=== PATIENT | female | born 1965 | race Caucasian/White ===

== ENCOUNTER 2016-12-27 11:30 | Inpatient (IN) | payer BC ==
[~2016-12-27] VITALS: Ht 170.2 cm; Wt 77.9 kg
[~2016-12-27 11:30] MED LIST: CEFAZOLIN 2 GM/50 ML (PMX) 50 ML IVPB ONE; LACTATED RINGER'S 1,000 ML IV* SCH; METF1000 PO; VENL75CA89 PO
[2017-04-24] MEDS ORDERED: CEFAZOLIN 2 GM/50 ML (PMX) 50 ML IVPB SCH (06:00)
[2017-04-24 14:52] VITALS: BMI 26.8
[2017-04-25] VITALS (40 sets, daily range): BP systolic 101–153; BP diastolic 54–87; PULSE 86–108; RESP 16–20; Ht 170.2 cm; Wt 77.9 kg
[2017-04-25] MEDS ORDERED: LACTATED RINGER'S 1,000 ML IV* SCH (06:00)
[2017-04-25] MEDS ORDERED: NABU-83 PO (06:19)
[2017-04-25] MEDS ORDERED: OXYC5CAP17 PO (06:19)
[2017-04-25] MEDS ORDERED: CARI350T29 PO (06:19)
[2017-04-25] MEDS ORDERED: INSULIN REGULAR, HUMAN 100 UNIT/1 ML 3ML VIAL IV ONE ×2 (06:30→11:30)
--- NOTE | 2017-04-25 06:54 | HPN ---
Date/Time of Note Date/Time of Note DATE: 04/25/17 TIME: 06:54 Interval H&P Admission Note Pt. seen H&P reviewed: No system changes MOISÉS GRAHAM PA-C Apr 25, 2017 06:54
[2017-04-25] MEDS ORDERED: ONDANSETRON 4 MG INJ IV PRN ×2 (07:00→11:00)
[2017-04-25] MEDS ORDERED: ACETAMINOPHEN 325 MG TAB PO PRN (07:00)
[2017-04-25] MEDS ORDERED: CEFAZOLIN 1 GM INJ ONE (07:00)
[2017-04-25] MEDS ORDERED: HYDROmorphONE 0.5 MG/0.5 ML SYG IV PRN (07:00)
[2017-04-25] MEDS ORDERED: ZOLPIDEM 5 MG TAB PO PRN (07:00)
[2017-04-25] MEDS ORDERED: NALOXONE (0.4 MG/ML) INJ IV PRN (07:00)
[2017-04-25] MEDS ORDERED: CEPASTAT LOZENGE MT PRN (07:00)
[2017-04-25] MEDS ORDERED: BISACODYL 10 MG SUPP PR PRN (07:00)
[2017-04-25] MEDS ORDERED: DIPHENHYDRAMINE 50 MG INJ IV PRN ×2 (07:00→11:00)
[2017-04-25] MEDS ORDERED: SURGIFOAM POWDER 1 GM KIT ONE ×2 (07:08→09:52)
[2017-04-25] MEDS ORDERED: BUPIVACAINE 0.25%/EPI (SDV) 30 ML INJ ONE ×2 (07:08→08:58)
[2017-04-25] MEDS ORDERED: THROMBIN 5000 UNIT VIAL ONE (07:08)
[2017-04-25] MEDS ORDERED: CA CHLORIDE 10% 10 ML SYRINGE ONE (07:09)
[2017-04-25] MEDS ORDERED: POLYMYXIN/BACITRACIN 1L IRRIG ONE (07:09)
[2017-04-25] MEDS ORDERED: FENTAnyl 50 MCG/ML VIAL ONE (07:09)
[2017-04-25] MEDS ORDERED: SUCCINYLCHOLINE CHLORIDE 100 MG/5 ML SYG IV ONE (07:10)
[2017-04-25] MEDS ORDERED: ROCURONIUM 50 MG INJ ONE (07:10)
[2017-04-25] MEDS ORDERED: LIDOCAINE 2% (SDV) 5 ML INJ ONE (07:10)
[2017-04-25] MEDS ORDERED: PROPOFOL 20 ML ONE (07:10)
[2017-04-25] MEDS ORDERED: HYDROmorphONE 2 MG/ML SYG ONE (07:11)
[2017-04-25] MEDS ORDERED: DEXAMETHASONE 4 MG/ML 1 ML INJ ONE (07:11)
[2017-04-25] MEDS ORDERED: HEPARIN 1000 UNITS/ML 10 ML INJ ONE (07:21)
[2017-04-25] MEDS ORDERED: MIDAZOLAM 1 MG/ML 2 ML INJ ONE (07:23)
[2017-04-25] MEDS ORDERED: SUGAMMADEX SODIUM 200 MG/2 ML VIAL IV ONE (07:36)
[2017-04-25] MEDS ORDERED: LABETALOL HCL 20MG INJ ONE (07:52)
[2017-04-25] MEDS ORDERED: PHENYLephrine 10 MG INJ ONE (07:58)
[2017-04-25] MEDS: DOCUSATE SODIUM 100 MG CAP PO SCH ×2 (09:00→20:23)
[2017-04-25] MEDS ORDERED: ONDANSETRON 4 MG INJ ONE (09:11)
--- NOTE | 2017-04-25 10:42 | SIPON ---
Date/Time of Note Date/Time of Note DATE: 04/25/17 TIME: 10:42 Operative Report Preoperative Diagnosis L4-5 degenerative disc disease and stenosis Postoperative Diagnosis L4-5 degenerative disc disease and stenosis Operation/Procedure Performed L4-5 fusion Surgeon see signature line district administrative assistant Marlen Narvaez Anesthesia: general Estimated blood loss: 10 - 50 ml's Transfusion Required none Specimen L4-5 disc Grafts/Implants Screws and cage Complications none NICOLE SCHAFER MD Apr 25, 2017 10:42
[2017-04-25] MEDS ORDERED: FENTAnyl 50 MCG/ML VIAL IV PRN ×3 (11:00)
[2017-04-25] MEDS ORDERED: KETOROLAC 30 MG INJ IV PRN (11:00)
[2017-04-25] MEDS ORDERED: METOCLOPRAMIDE 10 MG INJ IV PRN (11:00)
[2017-04-25] MEDS ORDERED: EPHEDrine SULFATE 50 MG/5 ML SYG IV PRN (11:00)
[2017-04-25] MEDS ORDERED: MEPERIDINE 25 MG INJ IV PRN (11:00)
[2017-04-25] MEDS ORDERED: ALBUTEROL 0.083% (NEB) 2.5 MG/3 ML AMP HHN PRN (11:00)
[2017-04-25] MEDS ORDERED: hydrALAzine 20 MG INJ IV PRN (11:00)
[2017-04-25] MEDS ORDERED: HYDROmorphONE (0.2 MG/ML) 10ML SYG IV PRN ×2 (11:00)
[2017-04-25] MEDS ORDERED: LABETALOL HCL 20MG INJ IV PRN (11:00)
[2017-04-25] MEDS ORDERED: MIDAZOLAM 1 MG/ML 2 ML INJ IV PRN (11:00)
[2017-04-25] MEDS: HYDROmorphONE (0.2 MG/ML) 10ML SYG IV PRN ×4 (11:15→13:15)
[2017-04-25] MEDS: HYDROmorphONE 0.2 MG/ML PCA IV SCH ×2 (11:16→21:58)
--- NOTE | 2017-04-25 11:24 | OPR ---
DATE OF OPERATION: 04/25/2017 PREOPERATIVE DIAGNOSES: L4-L5 degenerative disk disease and stenosis with radiculopathy. POSTOPERATIVE DIAGNOSES: L4-L5 degenerative disk disease and stenosis with radiculopathy. OPERATION PERFORMED 1. Anterior lumbar interbody fusion at L4-5. 2. Placement of intervertebral biomechanical device. 3. Pedicle screw placement at L4 and L5 bilaterally. 4. Posterolateral fusion at L4-5. 5. Use of allograft. 6. L4 vertebral body bone marrow aspiration. 7. Use of C-arm fluoroscopy with interpretation without radiologist present. 8. Intraoperative neuromonitoring (2.5 hours). IMPLANTS: 1. [place] 6.5 x 40 mm screws x4. 2. Fibergraft matrix. 3. [place] 8 x 10 x 50 mm cage. PRIMARY SURGEON: Ankur Zimmerman MD CONFERENCE PLANNER: ALBIN Bah NEED FOR TELEMARKETING AGENT: During this spinal surgical procedure, my transportation assistant was used to retrac t and protect the spinal nerves and dural sac. My transportation assistant also employed the suction catheters to evacuate blood from the surgical field to improve visualization of the neural structures. The enrique tant was medically necessary to facilitate the completion of the surgery in a safe and expeditious m jonas. State of [place] regulations, as well as hospital bylaws, preclude the use of non-license d health care personnel, such as operating room technicians, to perform these functions. FINDINGS: Neuromonitoring at the start of the case revealed right L4 amplitude down 30%, right L5 a mplitude down 40%. At the end of the case, nerve signals returned to normal. ESTIMATED BLOOD LOSS: 50 mL. DRAINS: None. SPECIMENS: L4-L5 disk. COMPLICATIONS OF PROCEDURES: None. ANESTHESIOLOGIST: Dr. Oakley TYPE OF ANESTHESIA: General. INDICATIONS FOR PROCEDURE: This is a 51-year-old female with [facility] and stenosis at L4-L5. She has failed nonoperative measures, therefore, I recomm ended proceeding with the above-mentioned surgery. Preoperatively, we discussed the risks, benefits , and alternatives. She understood and wished to proceed. DESCRIPTION OF PROCEDURE IN DETAIL: The patient was identified in the preoperative holding area, [facility], taken to the operating room, where she was successfully placed under general a nesthesia. Neuromonitoring leads were placed, sequential compressive devices were applied. Weber c atheter was introduced. Neuromonitoring was utilized during the procedure for 2.5 hours to include SSEP, MEP, and EMG. Start time was 8:00 a.m. Closure time was 10:30 a.m. The patient was initiall y placed in left lateral decubitus position. Axillary roll was placed. The patient was secured to the table with tape and the bed was flexed. This allowed access to the spine. The patient was then prepped and draped in usual sterile fashion. Incision was made laterally over the L4-L5 level. I dissected down to the retroperitoneal space. I then identified the L4-L5 disk space. I placed a di lator using neuromonitoring along the way, followed by placement of a guidewire. I then placed sequ entially larger dilators with the final retractor placed. The psoas muscle was then cleared off the annulus retractors were placed deeper. Once this was done, I stimulated the field and made sure there were no neural elements in the way. I then performed a radical diskectomy at the L4-5 level. Once this was done, endplates were prepare d. Various trials were placed. I chose the appropriate graft height. I took the PEEK cage, within which I placed allograft and I impacted the intervertebral biomechanical device into the L4-5 level to complete the anterior lumbar interbody fusion at L4-L5. I achieved hemostasis with bipolar caut mary and Surgifoam. Wound was irrigated. Retractors were removed. The wound was closed in layers u sing #1 Vicryl and 2-0 Vicryl stitches. Dermabond was placed. The patient was then placed in prone position over a [place] frame. All bony prominences were well p added. The back was then reprepped and draped in usual sterile fashion. Using the C-arm fluoroscop e, I identified the incision sites. I anesthetized skin with Marcaine and epinephrine. I was able to maneuver my incisions to be away from her tattoo. I then passed Jamshidi needles into the L4 and L5 pedicles bilaterally. Bone marrow aspiration was performed from the left L4 pedicle slush verte bral body. I then placed guidewires followed by placement of the appropriate sized pedicle screws. Once the screws were in place at L4 and L5 bilaterally, I stimulated the screws and there was no ev idence of cortical breach. I then placed the appropriate size jeff percutaneously with set screws pl aced and tightened. The eastern philosophy professor tabs were then removed. At this point, I took final AP and latera l images. I was happy with placement of the hardware and alignment of the spine. All nerve signals at this point were normal. I irrigated the wound. Posterolateral gutter was prepared, I placed al lograft into the posterolateral gutter this for posterolateral fusion at L4-5. I then closed the wo und in layers with a #1 Vicryl a 2-0 Vicryl stitch. Dermabond was then applied. The patient was th en awakened from anesthesia and taken to recovery room in stable condition. Lap, sponge, and instru ment counts were correct x2. There were no apparent complications during the procedure. The patient will be admitted to the [facility] for routine postoperative care to include pain c ontrol, neurovascular checks, antibiotics, and physical therapy. Dictated By: ANKUR AVENDAÑO/ANA LAURA Conf#: [id number] DID#: [id number] CC: MOISÉS GRAHAM;*EndCC*
--- NOTE | 2017-04-25 11:54 | RADRPT ---
PROCEDURE: X-ray fluoroscopy guidance CLINICAL INDICATION: Lumbar spine fusion, fluoroscopic guidance. TECHNIQUE: Fluoroscopic guidance was utilized for an intraoperative procedure. COMPARISON: None available FINDINGS: Fluoroscopic guidance was utilized for and intraoperative procedure. 142.2 seconds of fluoroscopy ti me was utilized for the procedure. 3 x-ray images were obtained during the procedure in progress. Im ages demonstrate hardware in grossly appropriate position. IMPRESSION: X-ray fluoroscopic guidance utilized for intraoperative procedure. Hardware in grossly appropriate position. Please see procedure note for details. RPTAT: AA .Jeronimo Fermin MD, MD Date Time Electronically viewed and signed by .Jeronimo Fermin MD, on 04/25/2017 11:54 .P/
[2017-04-25] MEDS ORDERED: DEXTROSE 50% 50 ML SYRINGE IV PRN ×2 (13:30)
[2017-04-25] MEDS ORDERED: GLUCOSE GEL 15 GRAM TUBE BUCCAL PRN (13:30)
[2017-04-25] MEDS ORDERED: GLUCAGON 1 MG INJ IM PRN (13:30)
[2017-04-25] MEDS ORDERED: GLUCOSE GEL 15 GRAM TUBE PO PRN ×2 (13:30)
--- NOTE | 2017-04-25 13:54 | RADRPT ---
PROCEDURE: Intraoperative fluoroscopy. CLINICAL INDICATION: Intraoperative fluoroscopy. COMPARISON: None relevant listed. TECHNIQUE: Intraoperative fluoroscopy of the lumbar spine was performed. Fluoroscopy time: 33 seconds # Series / Images: 1 FINDINGS: Intraoperative fluoroscopy was provided for surgical planning and support purposes. Expected changes related to L4-L5 interbody fusion. IMPRESSION: 1. Intraoperative fluoroscopy was provided for surgical planning and support purposes. 2. Expected changes related to L4-L5 interbody fusion. RPTAT: PP Physician Olga Date Time Electronically viewed and signed by Physician Olga on 04/25/2017 13:54 LG/
--- NOTE | 2017-04-25 14:03 | CONS ---
DATE OF ADMISSION: 04/25/2017 DATE OF CONSULTATION: TYPE OF CONSULTATION: Postoperative medical. Dear Dr. Zimmerman: Thank you very much for allowing me to evaluate this 51-year-old female who just underwent lumbar ba ck surgery. HISTORICAL EVENTS: As you well know, this patient did undergo surgery in early 02/2017 and subseque nt to this had continued pain involving her right low back. Despite a trial of epidural injection. She continued to have pain and elected to proceed with repeat surgical intervention. In recovery, she notes modest pain, denying cough, shortness of breath, nausea, vomiting, abdominal or chest pain . PAST MEDICAL HISTORY: Depression, history of diabetes her right shoulder surgery, a former smoker. FAMILY HISTORY: Positive for congenital heart disease, uterine cancer, bone cancer, breast cancer, diabetes and thyroid disease. ALLERGIES: NONE. PHYSICAL EXAMINATION: GENERAL: Anxious female in no acute distress. VITAL SIGNS: BP 128/80, pulse 70, respirations are 20, she was afebrile. EYES: Extraocular muscles were full. NOSE, MOUTH, AND THROAT: Normal. NECK: Supple. There was no jugular venous distention, thyroid enlargement or adenopathy. Carotids 2+. LUNGS: Clear. HEART: Rhythm regular. ABDOMEN: Nontender. Liver and spleen were not palpable. No masses or tenderness were noted. EXTREMITIES: No edema. Calves nontender. IMPRESSION: 1. Stable postop lumbar back surgery. 2. History of diabetes to continue metformin and will cover sugars with short-acting insulin before meals. 3. We will evaluate daily for signs and symptoms of thromboembolic disease. Dictated By: BRIAN SCHERER/ANA LAURA Conf#: [id number] DID#: [id number]
[2017-04-25] MEDS: CEFAZOLIN 1 GM/50 ML (PMX) 50 ML IVPB SCH ×2 (14:34→20:18)
[2017-04-25] MEDS: 1/2 NS + KCL 20 MEQ 1,000 ML IV SCH ×2 (14:35→18:00)
[2017-04-25] MEDS: metFORMIN 500 MG TAB PO SCH (18:26)
[2017-04-25] MEDS: INSULIN ASPART [NOVOLOG] 3 ML PEN SC SCH ×2 (18:30→20:27)
[2017-04-26 00:14] VITALS: BP 106/58; RESP 18
[2017-04-26] MEDS: ACCU-CHEK XX SCH (02:20)
[2017-04-26] MEDS: 1/2 NS + KCL 20 MEQ 1,000 ML IV SCH ×3 (02:20→22:50)
[2017-04-26] MEDS: CEFAZOLIN 1 GM/50 ML (PMX) 50 ML IVPB SCH (04:51)
[2017-04-26 05:25] LABS: BASOPHILS % 0.3 % (0.0-2.0); EOSINOPHILS # 0.1 10^3/ul (0.0-0.5); HEMATOCRIT 33.3 % (37.0-47.0); HEMOGLOBIN 11.1 g/dl (12.0-16.0); LYMPHOCYTES # 2.4 10^3/ul (0.8-2.9); LYMPHOCYTES % 21.8 % (15.0-51.0); MEAN CORPUSCULAR HEMOGLOBIN 29.8 pg (29.0-33.0); MEAN CORPUSCULAR HGB CONC 33.3 g/dl (32.0-37.0); MEAN CORPUSCULAR VOLUME 89.3 fl (82.0-101.0); MEAN PLATELET VOLUME 9.4 fl (7.4-10.4); MONOCYTE # 0.8 10^3/ul (0.3-0.9); MONOCYTES % 7.4 % (0.0-11.0); NEUTROPHIL # 7.7 10^3/ul (1.6-7.5); NEUTROPHILS % 69.1 % (39.0-77.0); PLATELET COUNT 243 10^3/UL (140-415); RED BLOOD COUNT 3.73 10^6/ul (4.20-5.40); WHITE BLOOD COUNT 11.1 10^3/ul (4.8-10.8)
[2017-04-26 05:55] LABS: CALCIUM 8.4 mg/dl (8.4-10.2); CREATININE 0.63 mg/dl (0.44-1.00); MAGNESIUM 1.6 mg/dl (1.7-2.5); POTASSIUM 3.8 mmol/L (3.5-5.1)
[2017-04-26] MEDS: HYDROmorphONE 0.2 MG/ML PCA IV SCH ×2 (07:30→18:15)
[2017-04-26 07:50] VITALS: BP 91/51; RESP 18
--- NOTE | 2017-04-26 07:59 | CONS ---
Date/Time of Note Date/Time of Note DATE: 04/26/17 TIME: 07:57 Assessment/Plan Assessment/Plan Additional Assessment/Plan 1. Stable postop lumbar back surgery. 2. DM, sugar control acceptable 3. Depression, coping well 4. Low Mag, will replete Consultation Date/Type/Reason Admit Date/Time Apr 25, 2017 at 05:32 Initial Consult Date Detailed Summary Respiratory: No cough Cardiovascular: No chest pain Gastrointestinal: no complaints Genitourinary: other (crowder in place) Musculoskeletal: back pain (moderate) Exam/Review of Systems Vital Signs Vitals Vital Signs Date Time Temp Pulse Resp B/P Pulse Ox O2 Delivery O2 Flow Rate FiO2 04/26/17 00:14 98.5 101 18 106/58 99 04/25/17 16:50 Nasal Cannula 2.0 Intake and Output 04/25/17 04/25/17 04/26/17 15:00 23:00 07:00 Intake Total 2650 ml 1020 ml 1100 ml Output Total 90 ml 700 ml Balance 2560 ml 320 ml 1100 ml Exam Neck: No jvd Respiratory: clear to auscultation Cardiovascular: regular rate and rhythm Gastrointestinal: soft Extremities: No edema, No tenderness Results Result Diagram: 04/26/17 0447 04/26/17 0447 Results 24 hrs Laboratory Tests Test 04/25/17 10:59 04/25/17 18:25 04/25/17 20:16 04/26/17 02:19 Bedside Glucose 286 H 211 242 H 171 Test 04/26/17 04:47 White Blood Count 11.1 H Red Blood Count 3.73 L Hemoglobin 11.1 L Hematocrit 33.3 L Mean Corpuscular Volume 89.3 Mean Corpuscular Hemoglobin 29.8 Mean Corpuscular Hemoglobin Concent 33.3 Red Cell Distribution Width 13.0 Platelet Count 243 Mean Platelet Volume 9.4 # Neutrophils % 69.1 Lymphocytes % 21.8 Monocytes % 7.4 Eosinophils % 1.0 Basophils % 0.3 Nucleated Red Blood Cells % 0.0 Neutrophils # 7.7 H Lymphocytes # 2.4 Monocytes # 0.8 Eosinophils # 0.1 Basophils # 0.0 Nucleated Red Blood Cells # 0.0 Sodium Level 137 Potassium Level 3.8 Chloride Level 100 Carbon Dioxide Level 28 Anion Gap 13 Blood Urea Nitrogen 7 Creatinine 0.63 Glucose Level 208 Calcium Level 8.4 Phosphorus Level 3.2 Magnesium Level 1.6 L Medications Medications Current Medications Potassium Chloride/Sodium Chloride (1/2 NS + KCl 20 Meq) 1,000 ml @ 100 mls/hr Q10H IV Last administered on 04/26/17 02:20; Admin Dose 100 MLS/HR; Start at 08:00 Oxycodone/ Acetaminophen (Endocet (10/ 325)) 1 tab Q4H PRN PO PAIN LEVEL 1-5; Start 04/25/17 at 07:00 Oxycodone/ Acetaminophen (Endocet (10/ 325)) 2 tab Q4H PRN PO PAIN LEVEL 6-10; Start 04/25/17 at 07:00 Hydromorphone HCl (Dilaudid) 0.2 mg Q1H PRN IV BREAKTHROUGH PAIN; Start at 07:00 Ondansetron HCl (Zofran Inj) 4 mg Q6H PRN IV NAUSEA AND/OR VOMITING; Start at 07:00 Bisacodyl (Dulcolax Supp) 10 mg DAILY PRN [place] CONSTIPATION; Start 04/25/17 at 07:00 Docusate Sodium (Colace) 100 mg BID PO ; Start 04/25/17 at 09:00 Al Hydrox/Mg Hydrox/Simethicone (Mag-Al Plus) 15 ml Q6H PRN PO CONSTIPATION/ DYSPEPSIA; Start 04/25/17 at 07:00 Acetaminophen (Tylenol Tab) 650 mg Q4H PRN PO BROOKS OR TEMP GREATER THAN 101.3F; Start 04/25/17 at 07:00 Carisoprodol (Soma) 350 mg TID PRN PO MUSCLE SPASMS; Start 04/25/17 at 07:00 Phenol (Cepastat Lozenge) 1 lozenge PRN PRN [place] SORE THROAT; Start 04/25/17 at 07:00 Diphenhydramine HCl (Benadryl) 25 mg Q6H PRN IV ITCHING; Start 04/25/17 at 07: 00 Naloxone HCl (Narcan) 0.2 mg Q2M PRN IV RR 8 BREATHS/MIN OR LESS; Start at 07:00 Hydromorphone HCl (Dilaudid SUPERANNUATION CLERK) SUPERANNUATION CLERK to be started in PACU Q4PCA IV Last administered on 04/26/17 07:30; Admin Dose 6 MG; Start 04/25/17 at 07:00; Stop 04/27/17 at 10:00 Miscellaneous Information 1. Hold SUPERANNUATION CLERK at 1,000... SUPERANNUATION CLERK IV ; Start 04/27/17 at 09 :30; Stop 04/27/17 at 12:00 Venlafaxine HCl (Effexor Xr) 75 mg DAILY PO ; Start 04/26/17 at 09:00 Diagnostic Test (Pha) (Accu-Chek) 1 ea 02 XX Last administered on 04/26/17 02 :20; Admin Dose 1 EA; Start 04/26/17 at 02:00 Miscellaneous Information 1 ea NOTE XX ; Start 04/25/17 at 13:30 Glucose (Glutose) 15 gm Q15M PRN PO DECREASED GLUCOSE; Start 04/25/17 at 13:30 Glucose (Glutose) 22.5 gm Q15M PRN PO DECREASED GLUCOSE; Start 04/25/17 at 13: 30 Dextrose (D50w Syringe) 25 ml Q15M PRN IV DECREASED GLUCOSE; Start 04/25/17 at 13:30 Dextrose (D50w Syringe) 50 ml Q15M PRN IV DECREASED GLUCOSE; Start 04/25/17 at 13:30 Glucagon (Glucagen) 1 mg Q15M PRN IM DECREASED GLUCOSE; Start 04/25/17 at 13: 30 Glucose (Glutose) 15 gm Q15M PRN BUCCAL DECREASED GLUCOSE; Start 04/25/17 at 13:30 BRIAN ARANDA MD Apr 26, 2017 07:59
[2017-04-26] MEDS ORDERED: MAGNESIUM SULFATE 3 GM in DEXTROSE 5% 100 ML IVPB ONE (08:00)
[2017-04-26] MEDS: DOCUSATE SODIUM 100 MG CAP PO SCH ×2 (08:33→21:00)
[2017-04-26] MEDS: VENLAFAXINE (XR) 75 MG CAP PO SCH (08:33)
[2017-04-26] MEDS: metFORMIN 500 MG TAB PO SCH ×2 (08:34→17:47)
[2017-04-26] MEDS: INSULIN ASPART [NOVOLOG] 3 ML PEN SC SCH ×4 (08:39→21:00)
[2017-04-26 09:36] VITALS: BP 98/58; PULSE 109; RESP 18
--- NOTE | 2017-04-26 12:06 | PN ---
Date/Time of Note Date/Time of Note DATE: 04/26/17 TIME: 12:04 Assessment/Plan Lines/Catheters IV Catheter Type (from Nrsg): Peripheral IV Weber in Place (from Nrsg): Yes Assessment/Plan Assessment/Plan POD #1 s/p lateral L4-5 fusion pain control continue routine care PT, ambulate Subjective 24 Hr Interval Summary c/o LBP, bladder pressure Exam/Review of Systems Vital Signs Vitals Vital Signs Date Time Temp Pulse Resp B/P Pulse Ox O2 Delivery O2 Flow Rate FiO2 04/26/17 09:36 109 18 98/58 98 Nasal Cannula 04/26/17 08:15 2.0 04/26/17 07:50 100.1 Intake and Output 04/25/17 04/25/17 04/26/17 15:00 23:00 07:00 Intake Total 2650 ml 1020 ml 1100 ml Output Total 90 ml 700 ml Balance 2560 ml 320 ml 1100 ml Exam Free Text/Dictation NVI right quad strength 4+/5 Results Result Diagram: 04/26/17 0447 04/26/17 0447 MOISÉS GRAHAM PA-C Apr 26, 2017 12:06
[2017-04-26] MEDS: CARISOPRODOL 350 MG TAB PO PRN (18:50)
[2017-04-26 20:29] VITALS: BP 115/67; RESP 20
[2017-04-26 23:25] VITALS: BP 111/58; RESP 20
[2017-04-27] MEDS: ACCU-CHEK XX SCH (01:33)
[2017-04-27] MEDS: CARISOPRODOL 350 MG TAB PO PRN ×2 (04:45→20:59)
[2017-04-27 05:18] LABS: BASOPHILS % 0.4 % (0.0-2.0); EOSINOPHILS # 0.1 10^3/ul (0.0-0.5); EOSINOPHILS % 1.3 % (0.0-7.0); HEMATOCRIT 32.2 % (37.0-47.0); HEMOGLOBIN 10.7 g/dl (12.0-16.0); LYMPHOCYTES % 9.5 % (15.0-51.0); MEAN CORPUSCULAR HEMOGLOBIN 29.6 pg (29.0-33.0); MEAN CORPUSCULAR HGB CONC 33.2 g/dl (32.0-37.0); MEAN PLATELET VOLUME 9.5 fl (7.4-10.4); MONOCYTE # 0.8 10^3/ul (0.3-0.9); MONOCYTES % 7.4 % (0.0-11.0); NEUTROPHIL # 8.9 10^3/ul (1.6-7.5); NEUTROPHILS % 80.9 % (39.0-77.0); PLATELET COUNT 219 10^3/UL (140-415); RED BLOOD COUNT 3.62 10^6/ul (4.20-5.40)
[2017-04-27] MEDS: metFORMIN 500 MG TAB PO SCH ×2 (06:54→17:41)
--- NOTE | 2017-04-27 07:31 | CONS ---
Date/Time of Note Date/Time of Note DATE: 04/27/17 TIME: 07:29 Assessment/Plan Assessment/Plan Additional Assessment/Plan 1. Stable postop lumbar back surgery with mod back pain an right thigh pain 2. DM, sugar control is improving 3. Depression, coping well 4. Low Mag, repleted yesterday await follow up labs Consultation Date/Type/Reason Admit Date/Time Apr 25, 2017 at 05:32 Detailed Summary Respiratory: No cough, No shortness of breath Cardiovascular: No chest pain, No lightheadedness, No orthopenea, No palpitations Gastrointestinal: No no complaints Genitourinary: No no complaints Musculoskeletal: back pain (moderte and right thigh pain) Exam/Review of Systems Vital Signs Vitals Vital Signs Date Time Temp Pulse Resp B/P Pulse Ox O2 Delivery O2 Flow Rate FiO2 04/26/17 23:25 98.0 99 20 111/58 99 04/26/17 19:30 Nasal Cannula 2.0 Intake and Output 04/26/17 04/26/17 04/27/17 15:00 23:00 07:00 Intake Total 506 ml 1015 ml 1200 ml Output Total 800 ml Balance 506 ml 215 ml 1200 ml Exam Neck: No jvd Respiratory: clear to auscultation Cardiovascular: regular rate and rhythm Gastrointestinal: soft Extremities: No edema (and no calf or thigh tend) Results Result Diagram: 04/27/17 0426 04/26/17 0447 Results 24 hrs Laboratory Tests Test 04/26/17 08:32 04/26/17 13:05 04/26/17 17:45 04/26/17 20:57 Bedside Glucose 239 H 232 H 227 H 213 Test 04/27/17 01:02 04/27/17 04:25 04/27/17 04:26 Bedside Glucose 168 Phosphorus Level 3.0 White Blood Count 11.0 H Red Blood Count 3.62 L Hemoglobin 10.7 L Hematocrit 32.2 L Mean Corpuscular Volume 89.0 Mean Corpuscular Hemoglobin 29.6 Mean Corpuscular Hemoglobin Concent 33.2 Red Cell Distribution Width 13.0 Platelet Count 219 Mean Platelet Volume 9.5 Neutrophils % 80.9 H Lymphocytes % 9.5 L Monocytes % 7.4 Eosinophils % 1.3 Basophils % 0.4 Nucleated Red Blood Cells % 0.0 Neutrophils # 8.9 H Lymphocytes # 1.0 Monocytes # 0.8 Eosinophils # 0.1 Basophils # 0.0 Nucleated Red Blood Cells # 0.0 Medications Medications Current Medications Potassium Chloride/Sodium Chloride (1/2 NS + KCl 20 Meq) 1,000 ml @ 100 mls/hr Q10H IV Last administered on 04/26/17 22:50; Admin Dose 100 MLS/HR; Start at 08:00 Oxycodone/ Acetaminophen (Endocet (10/ 325)) 1 tab Q4H PRN PO PAIN LEVEL 1-5; Start 04/25/17 at 07:00 Oxycodone/ Acetaminophen (Endocet (10/ 325)) 2 tab Q4H PRN PO PAIN LEVEL 6-10; Start 04/25/17 at 07:00 Hydromorphone HCl (Dilaudid) 0.2 mg Q1H PRN IV BREAKTHROUGH PAIN; Start at 07:00 Ondansetron HCl (Zofran Inj) 4 mg Q6H PRN IV NAUSEA AND/OR VOMITING; Start at 07:00 Bisacodyl (Dulcolax Supp) 10 mg DAILY PRN [place] CONSTIPATION; Start 04/25/17 at 07:00 Docusate Sodium (Colace) 100 mg BID PO Last administered on 04/26/17 08:33; Admin Dose 100 MG; Start 04/25/17 at 09:00 Al Hydrox/Mg Hydrox/Simethicone (Mag-Al Plus) 15 ml Q6H PRN PO CONSTIPATION/ DYSPEPSIA; Start 04/25/17 at 07:00 Acetaminophen (Tylenol Tab) 650 mg Q4H PRN PO BROOKS OR TEMP GREATER THAN 101.3F; Start 04/25/17 at 07:00 Carisoprodol (Soma) 350 mg TID PRN PO MUSCLE SPASMS Last administered on 04:45; Admin Dose 350 MG; Start 04/25/17 at 07:00 Phenol (Cepastat Lozenge) 1 lozenge PRN PRN [place] SORE THROAT; Start 04/25/17 at 07:00 Diphenhydramine HCl (Benadryl) 25 mg Q6H PRN IV ITCHING; Start 04/25/17 at 07: 00 Naloxone HCl (Narcan) 0.2 mg Q2M PRN IV RR 8 BREATHS/MIN OR LESS; Start at 07:00 Hydromorphone HCl (Dilaudid DEPUTY ASSESSOR) DEPUTY ASSESSOR to be started in PACU Q4PCA IV Last administered on 04/26/17 18:15; Admin Dose 6 MG; Start 04/25/17 at 07:00; Stop 04/27/17 at 10:00 Miscellaneous Information 1. Hold DEPUTY ASSESSOR at 1,000... DEPUTY ASSESSOR IV ; Start 04/27/17 at 09 :30; Stop 04/27/17 at 12:00 Venlafaxine HCl (Effexor Xr) 75 mg DAILY PO Last administered on 04/26/17 08: 33; Admin Dose 75 MG; Start 04/26/17 at 09:00 Diagnostic Test (Pha) (Accu-Chek) 1 ea 02 XX Last administered on 04/27/17 01 :33; Admin Dose 1 EA; Start 04/26/17 at 02:00 Miscellaneous Information 1 ea NOTE XX ; Start 04/25/17 at 13:30 Glucose (Glutose) 15 gm Q15M PRN PO DECREASED GLUCOSE; Start 04/25/17 at 13:30 Glucose (Glutose) 22.5 gm Q15M PRN PO DECREASED GLUCOSE; Start 04/25/17 at 13: 30 Dextrose (D50w Syringe) 25 ml Q15M PRN IV DECREASED GLUCOSE; Start 04/25/17 at 13:30 Dextrose (D50w Syringe) 50 ml Q15M PRN IV DECREASED GLUCOSE; Start 04/25/17 at 13:30 Glucagon (Glucagen) 1 mg Q15M PRN IM DECREASED GLUCOSE; Start 04/25/17 at 13: 30 Glucose (Glutose) 15 gm Q15M PRN BUCCAL DECREASED GLUCOSE; Start 04/25/17 at 13:30 BRIAN ARANDA MD Apr 27, 2017 07:31
[2017-04-27] MEDS: HYDROmorphONE 0.2 MG/ML PCA IV SCH (07:37)
--- NOTE | 2017-04-27 07:53 | PN ---
Date/Time of Note Date/Time of Note DATE: 04/27/17 TIME: 07:51 Assessment/Plan Lines/Catheters IV Catheter Type (from Nrsg): Peripheral IV Weber in Place (from Nrsg): Yes Assessment/Plan Assessment/Plan POD #2 s/p lumbar fusion pain control ambulate, PT routine care anticipate D/C tomorrow if cleared by PT and PMD Subjective 24 Hr Interval Summary c/o back pain, gas Exam/Review of Systems Vital Signs Vitals Vital Signs Date Time Temp Pulse Resp B/P Pulse Ox O2 Delivery O2 Flow Rate FiO2 04/26/17 23:25 98.0 99 20 111/58 99 04/26/17 19:30 Nasal Cannula 2.0 Intake and Output 04/26/17 04/26/17 04/27/17 15:00 23:00 07:00 Intake Total 506 ml 1015 ml 1200 ml Output Total 800 ml Balance 506 ml 215 ml 1200 ml Exam Free Text/Dictation NVI Results Result Diagram: 04/27/17 0426 04/26/17 0447 MOISÉS GRAHAM PA-C Apr 27, 2017 07:53
[2017-04-27 07:56] VITALS: BP 98/58; RESP 18
[2017-04-27 09:04] LABS: CALCIUM 8.1 mg/dl (8.4-10.2); CREATININE 0.54 mg/dl (0.44-1.00); MAGNESIUM 1.8 mg/dl (1.7-2.5); POTASSIUM 4.1 mmol/L (3.5-5.1)
[2017-04-27] MEDS: VENLAFAXINE (XR) 75 MG CAP PO SCH (09:07)
[2017-04-27] MEDS: DOCUSATE SODIUM 100 MG CAP PO SCH ×2 (09:07→20:51)
[2017-04-27] MEDS: INSULIN ASPART [NOVOLOG] 3 ML PEN SC SCH ×4 (09:09→20:54)
[2017-04-27] MEDS: OXYCODONE/ACETAMINOPHEN (10/325) TAB PO PRN ×3 (10:33→23:12)
[2017-04-27] MEDS: 1/2 NS + KCL 20 MEQ 1,000 ML IV SCH (10:49)
[2017-04-27] MEDS ORDERED: HYDROmorphONE 2 MG TAB PO PRN (11:40)
[2017-04-27] MEDS: AL HYDROX/MG HYDROX/SIMETH 30 ML CUP PO PRN (12:23)
[2017-04-27 20:16] VITALS: BP 99/52; RESP 18
[2017-04-28] MEDS: 1/2 NS + KCL 20 MEQ 1,000 ML IV SCH ×2 (00:09→13:29)
[2017-04-28] MEDS: ACCU-CHEK XX SCH (02:00)
[2017-04-28 02:33] VITALS: BP 103/53; RESP 18
[2017-04-28 05:20] LABS: BASOPHILS % 0.3 % (0.0-2.0); EOSINOPHILS # 0.3 10^3/ul (0.0-0.5); EOSINOPHILS % 2.4 % (0.0-7.0); HEMATOCRIT 31.8 % (37.0-47.0); HEMOGLOBIN 10.6 g/dl (12.0-16.0); LYMPHOCYTES % 18.8 % (15.0-51.0); MEAN CORPUSCULAR HEMOGLOBIN 29.8 pg (29.0-33.0); MEAN CORPUSCULAR HGB CONC 33.3 g/dl (32.0-37.0); MEAN CORPUSCULAR VOLUME 89.3 fl (82.0-101.0); MONOCYTE # 0.6 10^3/ul (0.3-0.9); MONOCYTES % 5.5 % (0.0-11.0); NEUTROPHIL # 7.6 10^3/ul (1.6-7.5); NEUTROPHILS % 72.6 % (39.0-77.0); PLATELET COUNT 225 10^3/UL (140-415); RED BLOOD COUNT 3.56 10^6/ul (4.20-5.40); RED CELL DISTRIBUTION WIDTH 12.7 % (11.5-14.5); WHITE BLOOD COUNT 10.5 10^3/ul (4.8-10.8)
[2017-04-28 05:51] LABS: CALCIUM 8.6 mg/dl (8.4-10.2); CREATININE 0.66 mg/dl (0.44-1.00); MAGNESIUM 1.9 mg/dl (1.7-2.5); POTASSIUM 4.4 mmol/L (3.5-5.1)
[2017-04-28 07:41] VITALS: BP 107/52; RESP 18
[2017-04-28] MEDS: INSULIN ASPART [NOVOLOG] 3 ML PEN SC SCH ×5 (07:50→21:00)
--- NOTE | 2017-04-28 08:07 | CONS ---
Date/Time of Note Date/Time of Note DATE: 04/28/17 TIME: 08:05 Assessment/Plan Assessment/Plan Additional Assessment/Plan 1. Stable postop lumbar back surgery with mod back pain 2. DM, sugar control is acceptable 3. Depression, coping well 4. DC if OK with ortho and PT Consultation Date/Type/Reason Admit Date/Time Apr 25, 2017 at 05:32 Detailed Summary Respiratory: No cough, No shortness of breath Cardiovascular: no complaints Gastrointestinal: no complaints Genitourinary: no complaints Musculoskeletal: back pain (moderate) Exam/Review of Systems Vital Signs Vitals Vital Signs Date Time Temp Pulse Resp B/P Pulse Ox O2 Delivery O2 Flow Rate FiO2 04/28/17 07:41 99.2 96 18 107/52 94 04/26/17 19:30 Nasal Cannula 2.0 Intake and Output 04/27/17 04/27/17 04/28/17 15:00 23:00 07:00 Intake Total 400 ml 700 ml Balance 400 ml 700 ml Exam Neck: No jvd Respiratory: clear to auscultation Cardiovascular: regular rate and rhythm Gastrointestinal: soft Extremities: No edema (and no calf tend) Results Result Diagram: 04/28/17 0500 04/28/17 0500 Results 24 hrs Laboratory Tests Test 04/27/17 08:27 04/27/17 12:39 04/27/17 17:32 04/27/17 20:53 Bedside Glucose 186 168 185 130 Test 04/28/17 05:00 White Blood Count 10.5 Red Blood Count 3.56 L Hemoglobin 10.6 L Hematocrit 31.8 L Mean Corpuscular Volume 89.3 Mean Corpuscular Hemoglobin 29.8 Mean Corpuscular Hemoglobin Concent 33.3 Red Cell Distribution Width 12.7 Platelet Count 225 Mean Platelet Volume 9.0 Neutrophils % 72.6 Lymphocytes % 18.8 Monocytes % 5.5 Eosinophils % 2.4 Basophils % 0.3 Nucleated Red Blood Cells % 0.0 Neutrophils # 7.6 H Lymphocytes # 2.0 Monocytes # 0.6 Eosinophils # 0.3 Basophils # 0.0 Nucleated Red Blood Cells # 0.0 Sodium Level 137 Potassium Level 4.4 Chloride Level 98 Carbon Dioxide Level 32 H Anion Gap 11 Blood Urea Nitrogen 6 L Creatinine 0.66 Glucose Level 184 Calcium Level 8.6 Magnesium Level 1.9 Medications Medications Current Medications Potassium Chloride/Sodium Chloride (1/2 NS + KCl 20 Meq) 1,000 ml @ 75 mls/hr [id number] IV Last administered on 04/26/17 22:50; Admin Dose 100 MLS/HR; Start 04/25/17 at 08:00 Oxycodone/ Acetaminophen (Endocet (10/ 325)) 1 tab Q4H PRN PO PAIN LEVEL 1-5; Start 04/25/17 at 07:00 Oxycodone/ Acetaminophen (Endocet (10/ 325)) 2 tab Q4H PRN PO PAIN LEVEL 6-10 Last administered on 04/27/17 23:12; Admin Dose 2 TAB; Start 04/25/17 at 07: 00 Ondansetron HCl (Zofran Inj) 4 mg Q6H PRN IV NAUSEA AND/OR VOMITING Last administered on 04/27/17 12:22; Admin Dose 4 MG; Start 04/25/17 at 07:00 Bisacodyl (Dulcolax Supp) 10 mg DAILY PRN [place] CONSTIPATION; Start 04/25/17 at 07:00 Docusate Sodium (Colace) 100 mg BID PO Last administered on 04/27/17 20:51; Admin Dose 100 MG; Start 04/25/17 at 09:00 Al Hydrox/Mg Hydrox/Simethicone (Mag-Al Plus) 15 ml Q6H PRN PO CONSTIPATION/ DYSPEPSIA Last administered on 04/27/17 12:23; Admin Dose 15 ML; Start at 07:00 Acetaminophen (Tylenol Tab) 650 mg Q4H PRN PO BROOKS OR TEMP GREATER THAN 101.3F; Start 04/25/17 at 07:00 Carisoprodol (Soma) 350 mg TID PRN PO MUSCLE SPASMS Last administered on 20:59; Admin Dose 350 MG; Start 04/25/17 at 07:00 Phenol (Cepastat Lozenge) 1 lozenge PRN PRN MT SORE THROAT; Start 04/25/17 at 07:00 Diphenhydramine HCl (Benadryl) 25 mg Q6H PRN IV ITCHING; Start 04/25/17 at 07: 00 Naloxone HCl (Narcan) 0.2 mg Q2M PRN IV RR 8 BREATHS/MIN OR LESS; Start at 07:00 Venlafaxine HCl (Effexor Xr) 75 mg DAILY PO Last administered on 04/27/17 09: 07; Admin Dose 75 MG; Start 04/26/17 at 09:00 Diagnostic Test (Pha) (Accu-Chek) 1 ea 02 XX Last administered on 04/27/17 01 :33; Admin Dose 1 EA; Start 04/26/17 at 02:00 Miscellaneous Information 1 ea NOTE XX ; Start 04/25/17 at 13:30 Glucose (Glutose) 15 gm Q15M PRN PO DECREASED GLUCOSE; Start 04/25/17 at 13:30 Glucose (Glutose) 22.5 gm Q15M PRN PO DECREASED GLUCOSE; Start 04/25/17 at 13: 30 Dextrose (D50w Syringe) 25 ml Q15M PRN IV DECREASED GLUCOSE; Start 04/25/17 at 13:30 Dextrose (D50w Syringe) 50 ml Q15M PRN IV DECREASED GLUCOSE; Start 04/25/17 at 13:30 Glucagon (Glucagen) 1 mg Q15M PRN IM DECREASED GLUCOSE; Start 04/25/17 at 13: 30 Glucose (Glutose) 15 gm Q15M PRN BUCCAL DECREASED GLUCOSE; Start 04/25/17 at 13:30 Hydromorphone HCl (Dilaudid) 1 mg Q1H PRN PO BREAKTHROUGH PAIN; Start at 11:40 BRIAN ARANDA MD Apr 28, 2017 08:07
[2017-04-28] MEDS: metFORMIN 500 MG TAB PO SCH ×2 (08:11→17:35)
[2017-04-28] MEDS: OXYCODONE/ACETAMINOPHEN (10/325) TAB PO PRN ×3 (08:11→21:24)
[2017-04-28] MEDS: DOCUSATE SODIUM 100 MG CAP PO SCH ×2 (08:47→21:16)
[2017-04-28] MEDS: VENLAFAXINE (XR) 75 MG CAP PO SCH (08:47)
--- NOTE | 2017-04-28 11:37 | PN ---
Date/Time of Note Date/Time of Note DATE: 04/28/17 TIME: 11:37 Assessment/Plan Lines/Catheters IV Catheter Type (from Nrsg): Peripheral IV Weber in Place (from Nrsg): Yes Assessment/Plan Assessment/Plan continues to have pain. continue with PT d/c planning for tomorrow Subjective 24 Hr Interval Summary low back and right thigh pain Exam/Review of Systems Vital Signs Vitals Vital Signs Date Time Temp Pulse Resp B/P Pulse Ox O2 Delivery O2 Flow Rate FiO2 04/28/17 07:41 99.2 96 18 107/52 94 04/26/17 19:30 Nasal Cannula 2.0 Intake and Output 04/27/17 04/27/17 04/28/17 14:59 22:59 06:59 Intake Total 400 ml 700 ml Balance 400 ml 700 ml Exam Free Text/Dictation nvi Results Result Diagram: 04/28/17 0500 04/28/17 0500 NICOLE SCHAFER MD Apr 28, 2017 11:37
[2017-04-28] MEDS: CARISOPRODOL 350 MG TAB PO PRN ×2 (13:08→22:20)
[2017-04-28 14:00] VITALS: BP 111/63; RESP 19
[2017-04-28 19:39] VITALS: BP 112/56; RESP 18
[2017-04-28] MEDS: AL HYDROX/MG HYDROX/SIMETH 30 ML CUP PO PRN (21:16)
[2017-04-29] MEDS: OXYCODONE/ACETAMINOPHEN (10/325) TAB PO PRN ×3 (01:10→11:52)
[2017-04-29 02:00] VITALS: BP 100/56; RESP 18
[2017-04-29] MEDS: ACCU-CHEK XX SCH (02:00)
[2017-04-29] MEDS: 1/2 NS + KCL 20 MEQ 1,000 ML IV SCH (02:49)
[2017-04-29] MEDS: CARISOPRODOL 350 MG TAB PO PRN (08:00)
[2017-04-29 08:08] VITALS: BP 100/57; RESP 16
[2017-04-29] MEDS: metFORMIN 500 MG TAB PO SCH (09:10)
[2017-04-29] MEDS: VENLAFAXINE (XR) 75 MG CAP PO SCH (09:10)
[2017-04-29] MEDS: DOCUSATE SODIUM 100 MG CAP PO SCH (09:10)
[2017-04-29] MEDS: INSULIN ASPART [NOVOLOG] 3 ML PEN SC SCH ×2 (09:16→12:40)
--- NOTE | 2017-05-02 07:10 | DS ---
Date/Time of Note Date/Time of Note DATE: 05/02/17 TIME: 07:09 Discharge Summary Admission/Discharge Info Admit Date/Time Apr 25, 2017 at 05:32 Discharge Date/Time Apr 29, 2017 at 15:45 Patient Condition: Good Procedures Lumbar fusion Hospital Course [facility] after undergoing the above procedure. His postoperative course was uncomplicated. By April 29 she was deemed stable for discharge with follow-up arranged with the undersigned Home Meds Reported Medications Carisoprodol* (Carisoprodol*) 350 Mg Tablet, 350 MG PO Q8 Y for MUSCLE SPASMS, TAB 04/25/17 Nabumetone* (Nabumetone*) 750 Mg Tablet, 750 MG PO BID, TAB 04/25/17 Oxycodone Hcl* (IR) (Oxycodone Hcl*) 5 Mg Capsule, 10 MG PO Q4H Y for PAIN, CAP 04/25/17 Venlafaxine Hcl* (Venlafaxine Hcl ER*) 75 Mg Cap.er.24h, 75 MG PO DAILY, #30 02/08/16 Metformin Hcl* (Metformin Hcl*) 1,000 Mg Tablet, 1000 MG PO BID, #60 02/08/16 Primary Care Provider Care Physician No Primary NICOLE SCHAFER MD May 02, 2017 07:10
== END 2017-04-29 15:45 | disposition home health service (06) | DRG 455 ==
LOC: REC 04-25 05:32 → MS1 04-25 13:34
PROVIDERS: ADMIT Specialist; ATTEND Specialist
PROC: 0SG00K1 Fusion of Lumbar Vertebral Joint with Nonautologous Tissue Substitute, Posterior Approach, Posterior Column, Open Approach (ICD-10-PCS; 2017-04-25)
PROC: 0ST20ZZ Resection of Lumbar Vertebral Disc, Open Approach (ICD-10-PCS; 2017-04-25)
PROC: 07DS3ZZ Extraction of Vertebral Bone Marrow, Percutaneous Approach (ICD-10-PCS; 2017-04-25)
PROC: 4A11X4G Monitoring of Peripheral Nervous Electrical Activity, Intraoperative, External Approach (ICD-10-PCS; 2017-04-25)
PROC: 0SG00A0 Fusion of Lumbar Vertebral Joint with Interbody Fusion Device, Anterior Approach, Anterior Column, Open Approach (ICD-10-PCS; principal; 2017-04-25 07:00)
DX: M51.16 Intervertebral disc disorders with radiculopathy, lumbar region (principal); E83.42 Hypomagnesemia; F32.9 Major depressive disorder, single episode, unspecified; M48.061 Spinal stenosis, lumbar region without neurogenic claudication; E11.9 Type 2 diabetes mellitus without complications; Z79.84 Long term (current) use of oral hypoglycemic drugs
CPT/HCPCS: 72020; 72100; 80048; 82962; 83735; 84100; 84703; 85025; 86999; 87086; 97116; 97163; 97530; C1713; J0690; J1100; J1170; J1200; J1644; J1815; J2250; J2405; J3010; J3475; J3480